=== PATIENT | female | born 1950 | race Two or more races ===

== ENCOUNTER 2024-11-03 06:17 | Emergency (ER) | payer OTHER, BC ==
[~2024-11-03] VITALS: Ht 154.9 cm; Wt 73.5 kg
[2024-11-03] MEDS ORDERED: EZALLOR SPRINKL20 MG (06:21)
[2024-11-03] MEDS ORDERED: 0.9 % SODIUM CHLORIDE 1,000 ML IV STA (07:22)
[2024-11-03] MEDS ORDERED: PROMETHAZINE HCL 25 MG/ML AMPUL IM STA (07:23)
[2024-11-03] MEDS ORDERED: MEPERIDINE HCL/PF 50 MG/ML VIAL IM STA (07:23)
[2024-11-03] MEDS ORDERED: PROMETHAZINE HCL 25 MG/ML AMPUL ONE (07:56)
[2024-11-03 08:51] LABS: HEMATOCRIT 44.5 % (36.0-45.00); HEMOGLOBIN 15.1 g/dL (12.0-15.00); MEAN CELL VOLUME 88.1 fL (80.00-100.00); PLATELET COUNT 248 K/uL (150-450); RED BLOOD COUNT 5.05 M/uL (4.00-6.00); RED CELL DISTRIBUTION WIDTH 13.7 % (11.5-14.5)
[2024-11-03] MEDS ORDERED: KETOROLAC TROMETHAMINE 60 MG VIAL IM STA (10:50)
[2024-11-03] MEDS ORDERED: KETOROLAC TROMETHAMINE 60 MG VIAL IM ONE (11:13)
[2024-11-03 11:40] LABS: CALCIUM 8.9 mg/dL (8.5-10.1); CREATININE SERUM 0.85 mg/dL (0.55-1.02); GFR 65.38; POTASSIUM 3.91 mEq/L (3.5-5.1)
[2024-11-03 11:43] LABS: PARTIAL THROMBOPLASTIN TIME 24.2 SECONDS (22.0-34.0); PROTHROMBIN TIME 10.9 SECONDS (9.0-11.5)
== END 2024-11-03 12:30 | disposition home or self-care (01) ==
LOC: ER 06:19
PROVIDERS: General Practice
DX: R10.9 Unspecified abdominal pain (principal); Z88.0 Allergy status to penicillin
CPT/HCPCS: 36415; 74176; 96365; 96366; 96372; 99284; J1885; J3490 ×2; J7030